=== PATIENT | male | born 1995 ===

== ENCOUNTER 2019-12-27 21:58 | Emergency (ER) | payer OTHER, SELFPAY ==
[2019-12-27 22:00] VITALS: BP 120/75; PULSE 95; RESP 16; TEMP 36.6; O2SAT 98; BMI 28.9
== END 2019-12-28 01:08 | disposition left against medical advice (07) ==
PROVIDERS: Emergency Provider Emergency Medicine
DX: Z48.02 Encounter for removal of sutures (principal)
CPT/HCPCS: 99281; 99282; 99292

== ENCOUNTER 2019-12-28 16:40 | Emergency (ER) | payer OTHER, SELFPAY ==
[2019-12-28 18:23] VITALS: BP 124/68; PULSE 82; RESP 16; TEMP 37.4; O2SAT 98; BMI 28.8
--- NOTE | 2019-12-28 18:42 | PC.NURSE ---
CASE MANAGEMENT CALLED BY PROVIDER DCF WORKER AT [facility]
--- NOTE | 2019-12-28 18:50 | ED.WOUNDLAC ---
HPI - Wound/Laceration General Chief Complaint: Wound/Laceration Stated Complaint: stitch removal Time Seen by Provider: 12/28/19 18:49 History of Present Illness HPI narrative: Patient presents for suture removal of multiple wounds to his back which were sutured 2 weeks ago and he has no complaints of fever chills or redness discharge from wound Related Data Allergies Allergy/AdvReac Type Severity Reaction Status Date / Time No Known Allergies Allergy Unverified 11/02/19 18:07 Review of Systems Review of Systems: There is no fever no chills no redness no discharge from Wound no swelling no numbness no weakness, patient does not feel threatened or in danger by any body now Yes all other systems are reviewed and are negative PMFSH Past Medical History Source: nursing notes reviewed Medical History (Updated 12/28/19 @ 18:51 by RONDA Holt) No known health problems Social History Social History Smoked in Last 30 Days: No Substance Use Type: Marijuana Advance Directives: No Advance Directives Information Provided: No Physical Exam Vital Signs: Vital Signs: Last Vital Signs Temp 99.4 F 12/28/19 18:23 Pulse 82 12/28/19 18:23 Resp 16 12/28/19 18:23 BP 124/68 12/28/19 18:23 Pulse Ox 98 12/28/19 18:23 Body Mass Index 28.8 Comfortable A&O x3 no acute distress exam the neck is supple respiratory no respiratory distress exam of the back is there are multiple sutured wounds all of them are well approximated with no dehiscence, there is no redness no warmth no drainage no evidence of any skin infections Neuro no focal deficits Course Course Course Narrative: There are 4 sutured wounds to the back none of them are red or warm none of them are swollen none of them have a discharge and there is no wound dehiscence The sutures were removed from all the wounds and no problems Discharge Plan Discharge Clinical Impression: Encounter for removal of sutures Patient Disposition: Home, Self-Care Additional Instructions: Wounds did not open up in all wounds look good with no sign of infection Return any concerns Interventions: ED Discharge Assessment Last Done: 12/28/19 18:57 Discharge Date/Time: 12/28/19 18:58
== END 2019-12-28 18:58 | disposition home or self-care (01) ==
PROVIDERS: Emergency Provider Emergency Medicine Emergency Medical Services
DX: Z48.02 Encounter for removal of sutures (principal)
CPT/HCPCS: 99282; 99284

== ENCOUNTER 2021-09-21 02:04 | Emergency (ER) | payer MEDICAID, SELFPAY ==
--- NOTE | ~2021-09-21 | XR_ITS ---
EXAMINATION: CHEST 2 VIEWS CLINICAL INFORMATION: fever, cough . COMPARISON: 04/27/2019. TECHNIQUE: PA and lateral views of the chest obtained. FINDINGS: The lungs are well expanded. No focal infiltrate, effusion, edema, or pneumothorax. Cardiac and mediastinal silhouettes are within normal limits for technique. No acute bony abnormality seen XR/XR chest 2V IMPRESSION: No evidence of acute disease
--- NOTE | ~2021-09-21 | CT_ITS ---
EXAMINATION: CT ABDOMEN AND PELVIS WITH CONTRAST CLINICAL INFORMATION: Abdominal pain, fever, diarrhea COMPARISON: CT abdomen pelvis May 20, 2016 TECHNIQUE: Multidetector volumetric images were obtained from the superior aspect of the liver through the pubic symphysis following administration 85 mL of Omnipaque 350 intravenous contrast. Sagittal and coronal reformatted images were obtained on the technologist's workstation. This CT examination was performed using dose optimization techniques as appropriate, variously including the following: *Automated exposure control *Adjustment of mA and/or kV according to patient size (this includes techniques or standardized protocols for targeted exams where dose is matched to indication/reason for exam; i.e. extremities or head) *Use of iterative reconstruction technique DLP: 546 mGy-cm FINDINGS: Visualized lung bases demonstrate mild dependent atelectasis. The liver demonstrates normal size, contour and attenuation. The gallbladder is normal in appearance. The pancreas, spleen and adrenal glands are unremarkable. Symmetrically enhancing kidneys. Normal caliber loops of small and large bowel. Normal appendix. Normal caliber abdominal aorta. The bladder is normal in appearance. The prostate gland is normal in size. No gross free pelvic fluid. No inguinal lymphadenopathy. No acute osseous abnormality. Mild anterolisthesis of L5 on S1 secondary to bilateral L5 pars defects. CT/CT abdomen pelvis w con IMPRESSION: No CT evidence for acute abnormality within the abdomen or pelvis. Fleischner guidelines were followed.
[2021-09-21 03:10] VITALS: BP 120/84; PULSE 95; RESP 14; TEMP 37.7; O2SAT 99; BMI 26.6
[2021-09-21 05:18] VITALS: BP 139/85; PULSE 95; RESP 16; O2SAT 99
[2021-09-21 08:13] LABS: MANUAL DIFF FLAG NO
[2021-09-21 08:18] LABS: Basophils Percent Auto 0.3 % (0-2); Eosinophils Percent Auto 0.2 % (0-4); Hematocrit 37.2 % (42.0-52.0); Hemoglobin 12.4 g/dl (14.0-18.0); Imm Gran Abs Auto 0.11 X10*3/uL (0.00-0.03); Imm Gran Pct Auto 0.8 % (0.0-0.4); Lymphocytes Absolute Auto 1.2 X10*3/uL (1.2-4.9); Lymphocytes Percent Auto 8.8 % (20-40); Mean Corpuscular HGB Conc 33.3 g/dl (31.0-36.0); Mean Corpuscular Hemoglobin 30.8 pg (27.0-33.0); Mean Corpuscular Volume 92.5 fL (80.0-98.0); Mean Platelet Volume 8.9 fL (9.4-12.4); Monocytes Absolute Auto 1.3 X10*3/uL (0.1-1.2); Monocytes Percent Auto 9.2 % (2-11); Neutrophils Absolute Auto 11.3 x10*3/uL (2.0-8.3); Neutrophils Percent Auto 80.7 % (45-73); Platelet Count 178 X10*3/uL (160-400); Red Blood Count 4.02 X10*6/uL (4.60-5.80); Red Cell Distribution Width 12.5 % (11.0-16.0)
[2021-09-21 08:25] LABS: Appearance Urine HAZY; Color Urine YELLOW; Glucose Urine UA NEG (NEG); Leukocyte Esterase Urine NEG (NEG); Nitrite Urine NEG (NEG); PH 6.5 (5.0-8.0); UACC Culture Trigger NO; Urine Blood TRACE (NEG); Urine Ketones >=80 MG/DL (NEG); Urine Protein 1+ MG/DL (NEG-TRACE)
[2021-09-21 08:35] VITALS: BP 134/77; PULSE 87; RESP 14; TEMP 37.7; O2SAT 97
[2021-09-21 08:35] LABS: COVID-19 Test Negative (Negative)
[2021-09-21 08:41] LABS: RBC Urine 0-2 /HPF (0); WBC Urine 0 /HPF (0-4)
[2021-09-21 08:42] LABS: Mucus Urine 1+ /LPF
[2021-09-21 08:52] LABS: Anion Gap 14 (12-20); Blood Urea Nitrogen 9 mg/dL (9-16); Carbon Dioxide 25 mmol/L (22-29); Chloride 101 mmol/L (96-108); Creatinine Clr Calc Pharmacy 101.8; Estimated Glomerular Filt Rate > 60; Glucose Random 106 mg/dL (60-115); Potassium 3.9 mmol/L (3.3-5.1); Sodium 136 mmol/L (135-145)
--- NOTE | 2021-09-21 08:52 | ED_ITS ---
HPI - Fever General Chief Complaint: Fever Stated Complaint: fever/stomach pain Time Seen by Provider: 09/21/21 08:22 Source: patient Mode of arrival: ambulatory Limitations: no limitations History of Present Illness HPI Narrative: 26-year-old male with a history of HIV on Biktarvy presents with 3 days of fever, sore throat, cough, upper abdominal discomfort, nausea, diarrhea, body aches. Patient reports temps are tactile. His last fever was 19:00 last night. Patient denies any headache, neck pain or stiffness, rash, urinary symptoms, vomiting. patient reports recent sex 3 weeks ago with a male partner but he did use condoms. Unsure of last cd4 counts but tell me they are normal and last saw ID 3 months ago Related Data Allergies Allergy/AdvReac Type Severity Reaction Status Date / Time No Known Allergies Allergy Unverified 11/02/19 18:07 Review of Systems Review of Systems: Yes all other systems are reviewed and are negative Constitutional: Constitutional: Reports no additional constitutional complai nts, Reports body ache(s), Reports chills, Reports fever(s), Denies headache(s) and Denies weakness Eyes: Eyes: Reports no additional eye complaints and Denies change in vision ENT: Reports system reviewed and no additional complaints, except as documented, Denies dizziness, Denies headache(s), Denies nasal congestion, Denies nasal discharge, Denies neck pain and Reports sore throat Cardiovascular: Cardiovascular: Reports no additional cardiovascular complai nts, Denies chest pain, Denies leg edema and Denies dyspnea Respiratory: Respiratory: Reports no additional respiratory complaints, Reports cough and Denies dyspnea Gastrointestinal: Gastrointestinal: Reports no additional gastrointestinal complaints, Reports abdominal pain, Reports diarrhea, Reports nausea and Denies vomiting Genitourinary: Genitourinary: Denies urinary incontinence Musculoskeletal: Musculoskeletal: Reports no additional musculoskeletal complaints, Denies back pain, Denies arthralgias, Denies joint swelling, Denies neck pain, Denies numbness and Denies tingling Integumentary/Breasts: Skin/Breast: Reports system reviewed and no additional complaints, except as docu and Denies rash Neurologic: Reports system reviewed and no additional complaints, except as documented, Denies Abnormal speech present, Denies dizziness, Denies headache(s), Denies numbness, Denies tingling and Denies weakness [facility] Past Medical History Attestation statement: The following information was validated with the patient. Source: old records reviewed and nursing notes reviewed Medical History No known health problems Social History Social History Substance Use Type: Marijuana Advance Directives: No Advance Directives Information Provided: No Physical Exam Vital Signs: Vital Signs: Last Vital Signs Temp 100 F 09/21/21 11:29 Pulse 91 09/21/21 11:29 Resp 16 09/21/21 11:29 BP 124/64 09/21/21 11:29 Pulse Ox 95 09/21/21 11:29 O2 Del Method 09/21/21 11:29 BMI result Body Mass Index 26.6 Const: General: cooperative, healthy appearing, comfortable and no acute distress Orientation/consciousness: patient oriented x3 Limitations: no limitations HEENT: Head: Yes normal to inspection Ears: hearing grossly normal bilaterally and TM's normal bilaterally General nose exam: Normal external nose present Face and sinus: Yes normal facial exam Mouth: Normal oral and palatal mucosa present Throat: Yes posterior oropharynx normal, Yes tonsils normal and Yes uvula midline Eyes: General: appearance normal, both eyes and all related structures Pupils: Equal, round and reactive pupils present Neck: Neck: Yes normal visual inspection, Yes full ROM, Yes no lymphadenopathy and Yes no meningeal signs Chest: Chest palpation & inspection: normal inspection of the chest Resp: Effort & Inspection: normal respiratory effort Auscultation: clear to auscultation bilaterally Cardio: Rate: regular rate Rhythm: regular rhythm Peripheral pulses: Peripheral pulses 2+ throughout GI: Inspection: Yes normal to inspection Palpation (GI): Soft to palpation and nontender Auscultation: normal bowel sounds Back/Spine/Pelvis: Thoracic/Lumbar Spine: thoracic and lumbar spine normal to inspection Skin: General skin exam: no rashes or lesions noted Neuro: General: patient oriented x3, no meningeal signs, no focal motor deficits and normal sensation to monofilament Cranial nerves: Yes Equal, round and reactive pupils present Cognition (Neuro): normal cognition Speech: No Abnormal speech present Gait exam (Neuro): Normal gait present Motor exam (neuro): 5/5 motor strength present throughout Extrem: General: Yes normal to inspection Course Course Course Narrative: The patient's chest x-ray shows no acute finding. His CT of the abdomen and pelvis are negative. His urinalysis shows no signs of infection. His gonorrhea and chlamydia testing are pending. His COVID screen and mono screen are negative. his labs show mild leukocytosis of 14,000 with inflammatory markers are elevated which can be seen with a viral illness. His other labs are all unremarkable with the exception of a mildly elevated CPK. Patient did receive 2 L of IV fluids and is feeling improved. I discussed the case with Dr. Reeves. Patient may have a viral illness. He had blood cultures and STD testing that were sent and are pending. I did inform the patient that we will call him if t hese results are positive. reviewed worrisome signs and symptoms with the patient's such as persistent fever greater than 5 days, neck pain and stiffness, intractable vomiting, severe pain. Patient is comfortable plan for discharge home. MDM - Fever MDM Narrative Medical decision making narrative: 26-year-old male with a history of HIV on Biktarvy (normal CD4 counts per patient but unavailable here) with flu-like symptoms of tactile temps, body aches, chills, sore throat, diarrhea, upper abdominal discomfort, nausea for 3 days. On arrival vitals are stable. Patient is afebrile here. His abdomen is soft and nontender. His lung sounds are clear. Over all non toxic. Due to medical history patient will need labs, urine, CT NG, x-ray of chest, COVID screen, CT A/P - Patient has no headache, neck pain or neck stiffness, meningeal signs to suggest meningitis Differential Diagnosis Differential diagnosis: Likely fever of unknown origin, community acquired pneumonia and viral infection Medical Records Attestation: I reviewed the patient's medical records. Lab Data Attestation: I reviewed the patient's lab results. Result diagrams: 09/21/21 08:07 09/21/21 08:07 Labs: Lab Results 09/21/21 09/21/21 09/21/21 Range/Units 08:07 08:07 08:07 WBC 14.0 H (4.8-10.8) X10*3/uL RBC 4.02 L (4.60-5.80) X10*6/uL Hgb 12.4 L (14.0-18.0) g/dl Hct 37.2 L (42.0-52.0) % MCV 92.5 (80.0-98.0) fL MCH 30.8 (27.0-33.0) pg MCHC 33.3 (31.0-36.0) g/dl RDW 12.5 (11.0-16.0) % Plt Count 178 (160-400) X10*3/uL MPV 8.9 L (9.4-12.4) fL Immature Gran % (Auto) 0.8 H (0.0-0.4) % Neut % (Auto) 80.7 H (45-73) % Lymph % (Auto) 8.8 L (20-40) % [place] % (Auto) 9.2 (2-11) % Eos % (Auto) 0.2 (0-4) % Baso % (Auto) 0.3 (0-2) % Lymph # (Auto) 1.2 (1.2-4.9) X10*3/uL [place] # (Auto) 1.3 H (0.1-1.2) X10*3/uL Eos # (Auto) 0.0 (0.0-0.4) X10*3/uL Baso # (Auto) 0.0 (0.0-0.2) X10*3/uL Abs Immat Gran (auto) 0.11 H (0.00-0.03) X10*3/uL Absolute Neuts (auto) 11.3 H (2.0-8.3) x10*3/uL Absolute Nucleated RBC 0.000 (0.0-0.012) X10*3/uL Nucleated RBC % (auto) 0.0 (0.0-0.2) /100WBC ESR (0-15) MM/HR Sodium 136 (135-145) mmol/L Potassium 3.9 (3.3-5.1) mmol/L Chloride 101 (96-108) mmol/L Carbon Dioxide 25 (22-29) mmol/L Anion Gap 14 (12-20) BUN 9 (9-16) mg/dL Creatinine 1.01 (0.5-1.4) mg/dL Estim Creat Clear Calc 101.8 Estimated GFR > 60 Random Glucose 106 (60-115) mg/dL Lactic Acid (0.5-2.0) mmol/L Calcium 9.0 (8.4-10.2) mg/dL Magnesium (1.6-2.6) mg/dL Total Bilirubin (0.0-1.0) mg/dL Direct Bilirubin (0.0-0.5) mg/dL AST (5-37) U/L ALT (0-40) U/L Alkaline Phosphatase (39-117) U/L Total Creatine Kinase (38-174) U/L C-Reactive Protein 16.96 H (< or = 0.50) mg/dL Total Protein (6.5-8.0) g/dL Albumin (3.5-5.0) g/dL Urine Color Urine Appearance Urine pH (5.0-8.0) Ur Specific [place] (1.005-1.025) Urine Protein (NEG-TRACE) MG/DL Urine Glucose (UA) (NEG) MG/DL Urine Ketones (NEG) MG/DL Urine Blood (NEG) Urine Nitrite (NEG) Ur Leukocyte Esterase (NEG) Urine RBC (0) /HPF Urine WBC (0-4) /HPF Ur Squamous Epith Cells /LPF Urine Bacteria /LPF Urine Mucus /LPF COVID-19 (ZOEY) Negative (Negative) COVID-19 Clin Com See Note Monoscreen (Negative) 09/21/21 09/21/21 09/21/21 Range/Units 08:07 08:13 09:09 WBC (4.8-10.8) X10*3/uL RBC (4.60-5.80) X10*6/uL Hgb (14.0-18.0) g/dl Hct (42.0-52.0) % MCV (80.0-98.0) fL MCH (27.0-33.0) pg MCHC (31.0-36.0) g/dl RDW (11.0-16.0) % Plt Count (160-400) X10*3/uL MPV (9.4-12.4) fL Immature Gran % (Auto) (0.0-0.4) % Neut % (Auto) (45-73) % Lymph % (Auto) (20-40) % [place] % (Auto) (2-11) % Eos % (Auto) (0-4) % Baso % (Auto) (0-2) % Lymph # (Auto) (1.2-4.9) X10*3/uL [place] # (Auto) (0.1-1.2) X10*3/uL Eos # (Auto) (0.0-0.4) X10*3/uL Baso # (Auto) (0.0-0.2) X10*3/uL Abs Immat Gran (auto) (0.00-0.03) X10*3/uL Absolute Neuts (auto) (2.0-8.3) x10*3/uL Absolute Nucleated RBC (0.0-0.012) X10*3/uL Nucleated RBC % (auto) (0.0-0.2) /100WBC ESR 39 H (0-15) MM/HR Sodium (135-145) mmol/L Potassium (3.3-5.1) mmol/L Chloride (96-108) mmol/L Carbon Dioxide (22-29) mmol/L Anion Gap (12-20) BUN (9-16) mg/dL Creatinine (0.5-1.4) mg/dL Estim Creat Clear Calc Estimated GFR Random Glucose (60-115) mg/dL Lactic Acid 0.7 (0.5-2.0) mmol/L Calcium (8.4-10.2) mg/dL Magnesium (1.6-2.6) mg/dL Total Bilirubin (0.0-1.0) mg/dL Direct Bilirubin (0.0-0.5) mg/dL AST (5-37) U/L ALT (0-40) U/L Alkaline Phosphatase (39-117) U/L Total Creatine Kinase (38-174) U/L C-Reactive Protein (< or = 0.50) mg/dL Total Protein (6.5-8.0) g/dL Albumin (3.5-5.0) g/dL Urine Color YELLOW Urine Appearance HAZY Urine pH 6.5 (5.0-8.0) Ur Specific [place] 1.020 (1.005-1.025) Urine Protein 1+ H (NEG-TRACE) MG/DL Urine Glucose (UA) NEG (NEG) MG/DL Urine Ketones >=80 (NEG) MG/DL Urine Blood TRACE (NEG) Urine Nitrite NEG (NEG) Ur Leukocyte Esterase NEG (NEG) Urine RBC 0-2 (0) /HPF Urine WBC 0 (0-4) /HPF Ur Squamous Epith Cells NONE /LPF Urine Bacteria NONE /LPF Urine Mucus 1+ /LPF COVID-19 (ZOEY) (Negative) COVID-19 Clin Com Monoscreen (Negative) 09/21/21 09/21/21 Range/Units 09:10 09:10 WBC (4.8-10.8) X10*3/uL RBC (4.60-5.80) X10*6/uL Hgb (14.0-18.0) g/dl Hct (42.0-52.0) % MCV (80.0-98.0) fL MCH (27.0-33.0) pg MCHC (31.0-36.0) g/dl RDW (11.0-16.0) % Plt Count (160-400) X10*3/uL MPV (9.4-12.4) fL Immature Gran % (Auto) (0.0-0.4) % Neut % (Auto) (45-73) % Lymph % (Auto) (20-40) % [place] % (Auto) (2-11) % Eos % (Auto) (0-4) % Baso % (Auto) (0-2) % Lymph # (Auto) (1.2-4.9) X10*3/uL [place] # (Auto) (0.1-1.2) X10*3/uL Eos # (Auto) (0.0-0.4) X10*3/uL Baso # (Auto) (0.0-0.2) X10*3/uL Abs Immat Gran (auto) (0.00-0.03) X10*3/uL Absolute Neuts (auto) (2.0-8.3) x10*3/uL Absolute Nucleated RBC (0.0-0.012) X10*3/uL Nucleated RBC % (auto) (0.0-0.2) /100WBC ESR (0-15) MM/HR Sodium (135-145) mmol/L Potassium (3.3-5.1) mmol/L Chloride (96-108) mmol/L Carbon Dioxide (22-29) mmol/L Anion Gap (12-20) BUN (9-16) mg/dL Creatinine (0.5-1.4) mg/dL Estim Creat Clear Calc Estimated GFR Random Glucose (60-115) mg/dL Lactic Acid (0.5-2.0) mmol/L Calcium (8.4-10.2) mg/dL Magnesium 1.7 (1.6-2.6) mg/dL Total Bilirubin 1.2 H (0.0-1.0) mg/dL Direct Bilirubin 0.5 (0.0-0.5) mg/dL AST 15 (5-37) U/L ALT 13 (0-40) U/L Alkaline Phosphatase 78 (39-117) U/L Total Creatine Kinase 236 H (38-174) U/L C-Reactive Protein (< or = 0.50) mg/dL Total Protein 7.1 (6.5-8.0) g/dL Albumin 4.4 (3.5-5.0) g/dL Urine Color Urine Appearance Urine pH (5.0-8.0) Ur Specific [place] (1.005-1.025) Urine Protein (NEG-TRACE) MG/DL Urine Glucose (UA) (NEG) MG/DL Urine Ketones (NEG) MG/DL Urine Blood (NEG) Urine Nitrite (NEG) Ur Leukocyte Esterase (NEG) Urine RBC (0) /HPF Urine WBC (0-4) /HPF Ur Squamous Epith Cells /LPF Urine Bacteria /LPF Urine Mucus /LPF COVID-19 (ZOEY) (Negative) COVID-19 Clin Com Monoscreen Negative (Negative) Imaging Data Chest x-ray: Attestation: I personally reviewed and interpreted this imaging study as follows: Radiologist's impression: [address] [address] XRay Report Signed Patient: Ivan Zelaya MR#: [id number] : 1995 Acct:[id number] Age/Sex: 26 / M ADM Date: 09/21/21 Loc: .ED Attending Dr: Ordering Physician: Tarah Cerna NP Date of Service: 09/21/21 Procedure(s): XR chest 2V Accession Number(s): [id number] cc: Tarah Cerna NP~ EXAMINATION: CHEST 2 VIEWS CLINICAL INFORMATION: fever, cough . COMPARISON: 04/27/2019. TECHNIQUE: PA and lateral views of the chest obtained.? FINDINGS: The lungs are well expanded. No focal infiltrate, effusion, edema, or pneumothorax. Cardiac and mediastinal silhouettes are within normal limits for technique. No acute bony abnormality seen XR/XR chest 2V IMPRESSION: No evidence of acute disease CT scan - abdomen: Attestation: I personally reviewed and interpreted this imaging study as follows: Radiologist's impression: Close ED Discharge Packet (Viewable) 12/28/19 18:51 ER Physician Documentation (Draft) 09/21/21 08:52 Abdomen/Pelvis CT (Signed) 09/21/21 10:35 Chest X-Ray (Signed) 09/21/21 09:02 Launch?Image [place] [address] CT Scan Report Signed Patient: Ivan Zelaya MR#: [id number] : 1995 Acct:[id number] Age/Sex: 26 / M ADM Date: 09/21/21 Loc: .ED Attending Dr: Ordering Physician: Tarah Cerna NP Date of Service: 09/21/21 Procedure(s): CT abdomen pelvis w con Accession Number(s): [id number] cc: Tarah Cerna CIVIL PREPAREDNESS OFFICER~ EXAMINATION: CT ABDOMEN AND PELVIS WITH CONTRAST? CLINICAL INFORMATION: Abdominal pain, fever, diarrhea? COMPARISON: CT abdomen pelvis May 20, 2016? TECHNIQUE: Multidetector volumetric images were obtained from the superior aspect of the liver through the pubic symphysis following administration 85 mL of Omnipaque 350 intravenous contrast. Sagittal and coronal reformatted images were obtained on the technologist's workstation.? This CT examination was performed using dose optimization techniques as appropriate, variously including the following: *Automated exposure control *Adjustment of mA and/or kV according to patient size (this includes techniques or standardized protocols for targeted exams where dose is matched to indication/reason for exam; i.e. extremities or head) *Use of iterative reconstruction technique DLP: 546 mGy-cm FINDINGS: Visualized lung bases demonstrate mild dependent atelectasis. The liver demonstrates normal size, contour and attenuation. The gallbladder is normal in appearance. The pancreas, spleen and adrenal glands are unremarkable. Symmetrically enhancing kidneys. Normal caliber loops of small and large bowel. Normal appendix. Normal caliber abdominal aorta. The bladder is normal in appearance. The prostate gland is normal in size. No gross free pelvic fluid. No inguinal lymphadenopathy. No acute osseous abnormality. Mild anterolisthesis of L5 on S1 secondary to bilateral L5 pars defects. CT/CT abdomen pelvis w con IMPRESSION: No CT evidence for acute abnormality within the abdomen or pelvis.? ? Fleischner guidelines were followed. Discharge Plan Discharge Clinical Impression: Viral infection Patient Disposition: Home, Self-Care Instructions: Viral Syndrome (ED) Additional Instructions: we did send blood cultures an STD testing which will take several days to come back. We will notify you of these are positive. Please return for persistent fever >5 days, vomiting, severe abdominal pain, neck pain/stiffness, incontinence of urine/stool Referrals: Physician,Unknown J [Primary Care Provider] - Interventions: ED Discharge Assessment Last Done: 09/21/21 12:34 Discharge Date/Time: 09/21/21 12:34
[2021-09-21] MEDS: 0.9 % Sodium Chloride 1,000 ML 999 ML IV ×2 (09:09→10:21)
[2021-09-21 09:26] LABS: Lactic Acid 0.7 mmol/L (0.5-2.0)
[2021-09-21 09:32] LABS: Alanine Aminotransferase 13 U/L (0-40); Albumin Level 4.4 g/dL (3.5-5.0); Alkaline Phosphatase 78 U/L (39-117); Aspartate Amino Transferase 15 U/L (5-37); Bilirubin Direct 0.5 mg/dL (0.0-0.5); Bilirubin Total 1.2 mg/dL (0.0-1.0); Magnesium 1.7 mg/dL (1.6-2.6); Total Protein 7.1 g/dL (6.5-8.0)
[2021-09-21 09:53] LABS: Monotest Negative (Negative)
[2021-09-21] MEDS: iohexoL 350 MG/ML 100 ML INFUS..BTL IV (10:35)
[2021-09-21 11:29] VITALS: BP 124/64; PULSE 91; RESP 16; TEMP 37.7; O2SAT 95
[2021-09-21 11:30] LABS: C Reactive Protein 16.96 mg/dL (< or = 0.50)
[2021-09-21 12:12] LABS: Erythrocyte Sedimentation Rate 39 MM/HR (0-15)
[2021-09-21 13:08] LABS: CT PCR NOT DETECTED (Not Detect.); NG PCR NOT DETECTED (Not Detect.)
== END 2021-09-21 12:34 | disposition home or self-care (01) ==
PROVIDERS: Nurse Practitioner Family; Emergency Provider Emergency Medicine
DX: B34.9 Viral infection, unspecified (principal); R50.9 Fever, unspecified; Z20.822 Contact with and (suspected) exposure to COVID-19; J02.9 Acute pharyngitis, unspecified; B20 Human immunodeficiency virus [HIV] disease; Z79.899 Other long term (current) drug therapy; F12.90 Cannabis use, unspecified, uncomplicated
CPT/HCPCS: 36415; 71046; 74177; 80048; 80076; 81001; 82550; 83605; 83735; 85025; 85652; 86140; 86308; 87040; 87491; 87591; 87635; 99284; Q9967

== ENCOUNTER 2022-07-14 08:51 | Emergency (ER) | payer OTHER, SELFPAY ==
[2022-07-14 08:53] VITALS: BP 117/77; PULSE 66; RESP 16; TEMP 36.3; O2SAT 97; BMI 29.0
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
[2022-07-14] MEDS: Ketorolac Tromethamine 15 MG/ML VIAL IM (09:41)
[2022-07-14] MEDS: Cyclobenzaprine HCl 5 MG TABLET PO (09:41)
== END 2022-07-14 09:51 | disposition home or self-care (01) ==
PROVIDERS: Emergency Provider Emergency Medicine
DX: Z04.1 Encounter for examination and observation following transport accident (principal); M54.9 Dorsalgia, unspecified
CPT/HCPCS: 96372; 99283; 99284; J1885

== ENCOUNTER 2023-04-09 18:31 | Emergency (ER) | payer MEDICAID, SELFPAY ==
[2023-04-09 19:06] VITALS: BP 105/66; PULSE 81; RESP 16; TEMP 36.6; O2SAT 98; BMI 27.4
--- NOTE | 2023-04-09 19:08 | ED.EYEPROB ---
HPI - Eye Problem General Chief complaint: General Medical Stated complaint: pink eye? Related Data Previous Rx's Medication Instructions Recorded cyclobenzaprine 5 mg tablet 5 mg PO TID PRN muscle spasm 7 07/14/22 days #21 tabs Allergies Allergy/AdvReac Type Severity Reaction Status Date / Time No Known Allergies Allergy Verified 04/09/23 19:06 [facility] Past Medical History Medical History No known health problems Social History Social History Substance Use Type: Marijuana Advance Directives: No Advance Directives Information Provided: No Physical Exam Vital Signs: Vital Signs: Last Vital Signs Temp 97.8 F 04/09/23 19:06 Pulse 81 04/09/23 19:06 Resp 16 04/09/23 19:06 BP 105/66 04/09/23 19:06 Pulse Ox 98 04/09/23 19:06 O2 Del Method Room Air 04/09/23 19:06 BMI result Body Mass Index 27.4 Course Course Course Narrative: RME:?28 yo male here w/ left eye irritation, redness, drainage, tearing since yesterday. Endorses going to [facility] in [place] yesterday. admits to touching a table and then rubbing his eye. endorsed immediate irritation and states he feels as though something is in the eye. woke up this morning w/ left eye crusted over. reports assoc blurred vision in the left eye. Does not wear corrective lenses. VA, fluorescein and tetracaine ordered Full HPI, ROS and PE to be performed by the primary ED provider. Reevaluation(s) Reevaluation #1: Patient left the ED without completing treatment. Discharge Plan Discharge Clinical Impression: Conjunctivitis Patient Disposition: Left W/O Completing Treatment Prescriptions: No Action cyclobenzaprine 5 mg tablet 5 mg PO TID PRN (Reason: muscle spasm) 7 Days Qty: 21 0RF Discharge Date/Time: 04/09/23 22:24
== END 2023-04-09 22:24 | disposition left against medical advice (07) ==
PROVIDERS: Emergency Provider Emergency Medicine
DX: H10.9 Unspecified conjunctivitis (principal)
CPT/HCPCS: 99281